=== PATIENT | female | born 1935 | race Caucasian/White ===

== ENCOUNTER 2016-08-21 17:09 | Emergency (ER) | payer MEDICARE, OTHER ==
[2016-08-21 17:28] VITALS: BP 137/57
--- NOTE | 2016-08-21 18:31 | UC ---
Throat Pain/Nasal Epifanio HPI - HPI Summary HPI Summary: pt is accomapnied by and daughter. Pt has history of CVA, thyroid cancer and thyroidectomy. Pt c/o sore throat that worsens throughout the day, pt reports that she "always" has mouth open, uses CPAP at night and has history of intubation that she removed on her own during a hospitalization. Pt also c/o right ear ache. Pt reports that her throat feels "so dry by end of night that she can no longer talk" - History of Current Complaint Chief Complaint: UCEar Stated Complaint: EARS,THROAT COMPLAINT Time Seen by Provider: 08/21/16 18:12 Hx Obtained From: Patient, Family/Wax Pumper Hx Last Menstrual Period: NA ?: No Onset/Duration: Gradual Onset Severity: Mild Associated Signs & Symptoms: Positive: Hoarseness, Other - right ear ache - Allergies/Home Medications Allergies/Adverse Reactions: Allergies Allergy/AdvReac Type Severity Reaction Status Date / Time Penicillins Allergy Intermediate Rash Verified 08/21/16 17:15 Nifedipine Allergy See Comment Verified 08/21/16 17:15 Prednisone Allergy Vomiting Verified 08/21/16 17:15 Sulfamethoxazole Allergy GI Upset Verified 08/21/16 17:15 w/Trimethoprim [From Bactrim] Home Medications: Home Medications Aspirin [Aspirin 81 MG TAB] 81 mg PO DAILY 08/21/16 [History Confirmed 08/21/16] Cholecalciferol [Vitamin D] 1,000 unit PO DAILY 08/21/16 [History Confirmed 01/26] Citalopram TAB* [CeleXA TAB*] 20 mg PO DAILY 08/21/16 [History Confirmed ] Cyanocobalamin [Vitamin B 12] 1,500 mcg PO DAILY 08/21/16 [History Confirmed 01/26] Levothyroxine TAB* [Synthroid TAB*] 100 mcg PO DAILY 08/21/16 [History Confirmed 08/21/16] Losartan Potassium 100 mg PO DAILY 08/21/16 [History Confirmed 08/21/16] Magnesium 500 mg PO BID 08/21/16 [History Confirmed 08/21/16] Nebivolol TAB (NF) [Bystolic TAB (NF)] 5 mg PO DAILY 08/21/16 [History Confirmed 08/21/16] Pyridoxine TAB* [Vitamin B6 TAB*] 200 mg PO DAILY 08/21/16 [History Confirmed ] Senna TAB* [Senokot TAB*] 2 tab PO BEDTIME 08/21/16 [History Confirmed 08/21/16] PMH/Surg Hx/FS Hx/Imm Hx Previously Healthy: Yes Endocrine History: Thyroid Disease Neurological History: CVA - Surgical History Surgical History: Yes Surgery Procedure, Year, and Place: THYROIDECTOMY--2010. HYSTERECTOMY. closed humeral shaft Fx. VENTRICULOSTOMY ([facility] - 2015) - Family History Known Family History: Positive: Cardiac Disease - Social History Lives: With Family Alcohol Use: None Substance Use Type: None Smoking Status (MU): Never Smoked Tobacco Have You Smoked in the Last Year: No - Immunization History Most Recent Influenza Vaccination: never Most Recent Tetanus Shot: unk Most Recent Pneumonia Vaccination: never Review of Systems Constitutional: Negative Skin: Negative Eyes: Negative ENT: Sore Throat, Ear Ache - right Respiratory: Negative Cardiovascular: Negative Gastrointestinal: Negative Genitourinary: Negative Motor: Negative Neurovascular: Negative Musculoskeletal: Negative Neurological: Weakness - s/p cva Psychological: Negative All Other Systems Reviewed And Are Negative: Yes Physical Exam Triage Information Reviewed: Yes Appearance: Well-Appearing Vital Signs: Initial Vital Signs Temp 98.6 F 08/21/16 17:22 Pulse 53 08/21/16 17:22 Resp 18 08/21/16 17:22 BP 137/57 08/21/16 17:22 Pulse Ox 96 08/21/16 17:22 Vital Signs Reviewed: Yes Eye Exam: Normal ENT Exam: Other - left side "lazy" tongue, Neck exam: Normal Respiratory Exam: Normal Cardiovascular Exam: Normal Musculoskeletal Exam: Other Musculoskeletal: Positive: Other: - left side weakness, Neurological Exam: Other - left side weakness Psychological Exam: Normal Skin Exam: Normal Throat Pain/Nasal Course/Dx - Differential Dx/Diagnosis Differential Diagnosis/HQI/PQRI: Other - ear ache Provider Diagnoses: right side ear ache. sore throat Discharge - Discharge Plan Condition: Stable Disposition: HOME Patient Education Materials: Earache (ED), Dysphagia (ED) Referrals: Nichole Franklin MD [Primary Care Provider] - Raz Walls MD [Medical Doctor] -
== END 2016-08-21 18:40 | disposition home or self-care (01) ==
LOC: UCCORT 17:09
DX: H92.01 Otalgia, right ear (principal); J02.9 Acute pharyngitis, unspecified; E89.0 Postprocedural hypothyroidism
CPT/HCPCS: 99212; G0463

== ENCOUNTER 2017-01-28 17:15 | Emergency (ER) | payer MEDICARE, MEDICAID ==
[2017-01-28 19:01] VITALS: BP 161/71
--- NOTE | 2017-01-28 19:02 | UC ---
Respiratory Complaint HPI - HPI Summary HPI Summary: 81 YEAR OLD MALE PRESENTS WITH COMPLAINS COUGH. - History of Current Complaint Stated Complaint: COUGH, DEANDRA Time Seen by Provider: 01/28/17 19:00 Hx Obtained From: Patient Hx Last Menstrual Period: NA Onset/Duration: Sudden Onset Severity Initially: Moderate Severity Currently: Moderate Pain Scale Used: 0-10 Numeric - 5 Character: Cough: Nonproductive - Allergies/Home Medications Allergies/Adverse Reactions: Allergies Allergy/AdvReac Type Severity Reaction Status Date / Time Penicillins Allergy Intermediate Rash Verified 08/21/16 17:15 Gabapentin Allergy Altered Verified 01/28/17 19:03 Mental Status Nifedipine Allergy See Comment Verified 08/21/16 17:15 Prednisone Allergy Vomiting Verified 08/21/16 17:15 Sulfamethoxazole Allergy GI Upset Verified 08/21/16 17:15 w/Trimethoprim [From Bactrim] Home Medications: Home Medications Acetaminophen [Tylenol] 325 mg PO SEE INSTRUCTIONS PRN 01/28/17 [History Confirmed 01/28/17] PMH/Surg Hx/FS Hx/Imm Hx Previously Healthy: Yes - Surgical History Surgical History: Yes Surgery Procedure, Year, and Place: THYROIDECTOMY--2010. HYSTERECTOMY. closed humeral shaft Fx. VENTRICULOSTOMY ([facility] - 2015) - Family History Known Family History: Positive: None, Cardiac Disease - Social History Alcohol Use: None Substance Use Type: None Smoking Status (MU): Never Smoked Tobacco Have You Smoked in the Last Year: No - Immunization History Most Recent Influenza Vaccination: never Most Recent Tetanus Shot: unk Most Recent Pneumonia Vaccination: never Review of Systems Constitutional: Negative Skin: Negative Eyes: Negative ENT: Sore Throat, Nasal Discharge, Sinus Congestion, Sinus Pain/Tenderness Respiratory: Cough Cardiovascular: Negative Gastrointestinal: Negative Genitourinary: Negative Motor: Negative Neurovascular: Negative Musculoskeletal: Negative Neurological: Negative Psychological: Negative All Other Systems Reviewed And Are Negative: Yes Physical Exam Triage Information Reviewed: Yes Vital Signs: Initial Vital Signs Temp 37.1 C 01/28/17 18:48 Pulse 57 01/28/17 18:48 Resp 24 01/28/17 18:48 BP 161/71 01/28/17 18:48 Pulse Ox 96 01/28/17 18:48 Vital Signs Reviewed: Yes Eye Exam: Normal ENT Exam: Normal Dental Exam: Normal Neck exam: Normal Neck: Positive: 1 Respiratory: Positive: Rhonchi, Wheezing Cardiovascular Exam: Normal Abdominal Exam: Normal Musculoskeletal Exam: Normal Neurological Exam: Normal Psychological Exam: Normal Skin Exam: Normal UC Diagnostic Evaluation - Laboratory O2 Sat by Pulse Oximetry: 96 Respiratory Course/Dx - Differential Dx/Diagnosis Provider Diagnoses: COUGH. POST NASAL DRIP Discharge - Discharge Plan Condition: Stable Disposition: HOME Prescriptions: DOXYcycline CAP(*) [DOXYcycline 100MG CAP(*)] 100 mg PO BID #14 cap Guaifenesin-Codeine [Cheratussin AC] 1 teasp PO Q8H PRN #120 ml MDD 15 ml PRN Reason: Cough LoraTADine TAB(NF) [Claritin 10 MG TAB(NF)] 10 mg PO DAILY #30 tab Neomycin/Polym/Bacit TOP OINT* [Neosporin TOP OINT TUBE*] 1 applic TOPICAL TID # 1 tube Patient Education Materials: Acute Cough (ED) Referrals: Nichole Franklin MD [Medical Doctor] -
== END 2017-01-28 19:48 | disposition home or self-care (01) ==
LOC: UCCORT 17:15
DX: R05 Cough (principal); R09.82 Postnasal drip
CPT/HCPCS: 99212; G0463